=== PATIENT | female | born 1990 | race Caucasian/White ===

== ENCOUNTER 2022-07-24 06:59 | Emergency (ER) | payer OTHER, SELFPAY ==
[2022-07-24] VITALS (9 sets, daily range): BP systolic 115–150; BP diastolic 63–98; PULSE 77–99; RESP 16–18; TEMP 36.9; O2SAT 96–100; BMI 22.6
--- NOTE | 2022-07-24 09:25 | DI.CT.S_ITS ---
PROCEDURE: CT KIDNEY URETER BLADDER (KUB) INDICATIONS: right flank pain, stone vs pyelo TECHNIQUE: Axial sections were acquired from the lung bases to the pubic symphysis. Coronal and sagittal reformats were performed. For radiation dose reduction, the following was used: automated exposure control, adjustment of mA and/or kV according to patient size. COMPARISON: None. FINDINGS: Image quality: Excellent. Lung bases: Unremarkable. Heart: No significant findings. URINARY: Right Kidney: Mild hydronephrosis. Right Ureter: 2 millimeter stone within the right ureteral vesicular junction, resulting in hydroureter. Left Kidney: Punctate nonobstructing stone in the inferior calyx. Left Ureter: No hydroureter. Bladder: Normal wall thickness. No stones. ABDOMEN: Liver: Unremarkable. Gallbladder: Unremarkable. Biliary ducts: Unremarkable. Pancreas: Unremarkable. Spleen: Unremarkable. Adrenal Glands: Unremarkable. Stomach and Bowel: Stomach, small bowel loops, and colon are unremarkable. Peritoneum: No abnormal intraperitoneal fluid. No free air. Ventral Wall: No hernia. Abdominal Nodes: No enlarged retroperitoneal or mesenteric lymph nodes. Vessels: Aorta and inferior vena cava are normal in size. PELVIS: Pelvic Organs: Unremarkable. Pelvic Nodes: Unremarkable. Miscellaneous: No inguinal hernias are seen. Bones: Unremarkable. IMPRESSION: 2 millimeter obstructing stone within the right UVJ, resulting in moderate hydronephrosis. Dictated by: Ras Bocanegra M.D. on 07/24/2022 at 9:50 Approved by: Ras Bocanegra M.D. on 07/24/2022 at 9:52
--- NOTE | 2022-07-24 09:25 | ED.FEMALEGU ---
HPI - Female Genitourinary General Chief complaint: Urogenital-Female Stated complaint: possble kidney stone Time Seen by Provider: 07/24/22 09:08 Source: patient, RN notes reviewed and old records reviewed Mode of arrival: Ambulatory Limitations: no limitations History of Present Illness HPI Narrative: This is a 31-year-old female on oral contraceptives with no other major medical issues. Patient states she woke up with right flank pain in the middle of the night which has been constant with no waxing or waning and quite intense. She denies fevers or chills, denies nausea or vomiting. She states no radiation to the front door elsewhere. No recent trauma or injuries. She denies diarrhea or constipation, no black or bloody stools. She is had frequency, sense of urgency and incomplete emptying as well as few episodes of dysuria. Patient denies any hematuria. She denies any vaginal bleeding or discharge. She states she had a similar episode for 2 or 3 hours about a week. Patient states no other similar episodes. She is on control, no other daily medications. No other reported medical issues. No prior surgeries. No known drug allergies. No tobacco, occasional alcohol, no recreational drugs. Related Data Previous Rx's Medication Instructions Recorded ciprofloxacin HCl 500 mg tablet 500 mg PO BID #14 tabs 07/24/22 oxycodone 5 mg tablet 5 mg PO Q6H PRN pain #14 tabs 07/24/22 tamsulosin 0.4 mg capsule 0.4 mg PO DAILY #30 caps 07/24/22 Review of Systems Review of Systems ROS Unobtainable: All systems reviewed & are unremarkable except as noted in HPI and below Exam Narrative Exam Narrative: GENERAL: Alert and oriented x three, well-nourished female in mild distress. HEENT: Head normocephalic, atraumatic, EOMI, pupils reactive, face symmetric, moist mucous membranes NECK: Supple, full range of motion CARDIOVASCULAR: Regular rate and rhythm without murmurs, rubs or gallops. RESPIRATORY: Breath sounds equal bilaterally, no wheezes rales or rhonchi. ABDOMEN: Soft, nontender. Nondistended. Normoactive bowel sounds all 4 quadrants. No guarding or rebound, rigidity, no mass : No CVA tenderness EXTREMITIES: Normal range of motion, no clubbing or edema. Neurovascularly intact NEUROLOGICAL: Cranial nerves II through XII grossly intact. Moving all extremities SKIN: Warm, dry, no petechiae, no rashes or lesions. Initial Vital Signs Initial Vital Signs: Vital Signs Temperature 98.4 F 07/24/22 07:16 Pulse Rate 97 H 07/24/22 07:16 Respiratory Rate 16 07/24/22 07:16 Blood Pressure 150/94 H 07/24/22 07:16 Pulse Oximetry 100 07/24/22 07:16 Oxygen Delivery Method Room Air 07/24/22 07:16 Course Orders Ordered: ED Orders 07/24/22 10:06 CBC Auto Diff [Complete Blood Count AUTO DIFF] Stat CMP [Comprehensive Metabolic Panel] Stat Lipase Stat Discontinued Medications Ketorolac Tromethamine (Ketorolac 30 Mg/Ml Vial) 15 mg IV NOW ONE Stop: 07/24/22 09:26 Last Admin: 07/24/22 10:04 Dose: 15 mg Documented By: INÉS Ondansetron HCl (Ondansetron 4 Mg/2 Ml Inj) 4 mg IV NOW ONE Stop: 07/24/22 10:01 Last Admin: 07/24/22 10:05 Dose: 4 mg Documented By: INÉS Tamsulosin HCl (Tamsulosin 0.4 Mg Capsule) 0.4 mg PO NOW ONE Stop: 07/24/22 11:31 Last Admin: 07/24/22 11:34 Dose: 0.4 mg Documented By: INÉS Vital Signs Vital signs: Vital Signs - 8 hr 07/24/22 11:38 Pulse Rate 77 Respiratory Rate 18 Blood Pressure 120/68 Pulse Oximetry 99 Oxygen Delivery Method Room Air MDM - Female Genitourinary Lab Data 07/24/22 10:06 07/24/22 10:06 Labs: Lab Results 07/24/22 07/24/22 07/24/22 Range/Units 07:18 10:06 10:06 WBC 12.6 H (4.5-11.0) X10^3/uL RBC 4.64 (4.0-5.2) X10^6/uL Hgb 14.0 (12.0-16.0) g/dL Hct 40.1 (36-46) % MCV 86.4 (80-100) fL MCH 30.1 (26-34) PG MCHC 34.9 (30-36) % RDW 13.3 (11.6-14.8) % Plt Count 315 (150-400) X10^3/uL Neut % (Auto) 82.2 H (50-75) % Lymph % (Auto) 12.3 L (25-40) % [place] % (Auto) 4.9 (3-14) % Eos % (Auto) 0.0 L (2-4) % Baso % (Auto) 0.6 (0-2) % Neut # (Auto) 22151 H (5142-7592) /uL Lymph # (Auto) 1600 (2748-0774) /uL [place] # (Auto) 600 (0-900) /uL Eos # (Auto) 0 (0-450) /uL Baso # (Auto) 100 (0-100) /uL Sodium 133 L (137-145) mmol/L Potassium 3.6 (3.4-5.1) mmol/L Chloride 101 (98-107) mmol/L Carbon Dioxide 19 L (22-32) mmol/L BUN 14 (7-17) mg/dL Creatinine 1.35 H (0.52-1.04) mg/dL Estimated GFR 54 L (>60) mL/min BUN/Creatinine Ratio 10.4 (6-22) Glucose 123 H (70-100) mg/dL Calcium 9.0 (8.4-10.2) mg/dL Total Bilirubin 1.0 (0.2-1.3) mg/dL AST 29 (14-36) IU/L ALT 26 (<35) IU/L Alkaline Phosphatase 43 (38-126) U/L Total Protein 7.4 (6.3-8.2) g/dL Albumin 4.5 (3.5-5.0) g/dL Globulin 2.9 (1.7-4.1) g/dL Albumin/Globulin Ratio 1.6 (1.0-2.8) Lipase 153 (23-300) U/L Urine RBC 0-1/hpf (0-5/HPF) Urine WBC 0-1/hpf (0-5/HPF) Ur Squamous Epith Cells 10-30 /hpf H (0-5/HPF) Amorphous Sediment 2+ Urine Bacteria Moderate (10-30) H (None) Urine Mucus 2+ H (Negative) Ur Culture Indicated? Specimen cultured Point of Care Testing Test Results Negative Urine Dip Bedside Urine Glucose Negative Bedside Urine Bilirubin - Negative Bedside Urine Ketone ++ 40 Urine Specific [place] 1.025 Bedside Urine Occult Blood - Negative Bedside Urine pH 6.0 Bedside Urine Protein + 30 Bedside Urine Urobilinogen - Negative Bedside Urine Nitrite - Negative Bedside Urine Leukocytes - Negative Esterase Imaging Data CT scan - abdomen/pelvis: Radiologist's Impression: Close Abdomen/Pelvis CT (Signed) Ras Bocanegra - 07/24/22 Launch?[address] [address] [address] Scan Report Signed Patient: Yenny Nunn MR#: [id number] : 1990 Acct:[id number] Age/Sex: 31 / F Date of Service: 07/24/22 Loc: ED Accession Number: [id number] ?? Procedure: CT kidney ureter bladder (KUB) Ordering Provider: Rosanna Wray D.O. PROCEDURE:? CT KIDNEY URETER BLADDER (KUB) ? INDICATIONS:? right flank pain, stone vs pyelo ? TECHNIQUE:? Axial sections were acquired from the lung bases to the pubic symphysis.? Coronal and sagittal reformats were performed.? For radiation dose reduction, the following was used: ?automated exposure control, adjustment of mA and/or kV according to patient size.? ? COMPARISON:? None. ? FINDINGS:? Image quality:? Excellent.? ? Lung bases:? Unremarkable.? ? Heart:? No significant findings. ? URINARY: Right Kidney: ? Mild hydronephrosis. Right Ureter:? 2 millimeter stone within the right ureteral vesicular junction, resulting in hydroureter. ? Left Kidney:? Punctate nonobstructing stone in the inferior calyx.? Left Ureter:? No hydroureter.? ? Bladder:? Normal wall thickness. No stones. ? ? ? ABDOMEN: Liver:? Unremarkable.? ? Gallbladder:? Unremarkable.? ? Biliary ducts:? Unremarkable.? ? Pancreas:? Unremarkable.? ? Spleen:? Unremarkable.? ? Adrenal Glands:? Unremarkable.? ? ? Stomach and Bowel:? Stomach, small bowel loops, and colon are unremarkable.? Peritoneum:? No abnormal intraperitoneal fluid.? No free air.? ? Ventral Wall: ? No hernia.? Abdominal Nodes:? No enlarged retroperitoneal or mesenteric lymph nodes.? Vessels:? Aorta and inferior vena cava are normal in size.? ? PELVIS: Pelvic Organs:? Unremarkable.? ? Pelvic Nodes: Unremarkable. Miscellaneous: No inguinal hernias are seen. ? ? ? Bones:? Unremarkable. ? IMPRESSION:? ? 2 millimeter obstructing stone within the right UVJ, resulting in moderate hydronephrosis. ? ? Dictated by: Ras Bocanegra M.D. on 07/24/2022 at 9:50 ? ? Approved by: Ras Bocanegra M.D. on 07/24/2022 at 9:52?? MDM Narrative Medical decision making narrative: This is a 31-year-old female who presents with complaint of fairly acute onset of right flank pain not really gradual but had 1 episode a week ago for 2 or 3 hours but is also having some dysuria, urgency and frequency. Patient's point of care urine did not show clear signs of infection, micro shows 10-30 squamous, moderate bacteria and was cultured. Discussed with patient she does not have reproducible pain on examination suspect kidney versus pyelonephritis. Patient had CBC, CMP, lipase and KUB CT, CT shows a 2 mm stone in the right UVJ. Patient's creatinine is 1.35 no priors for comparison, BUN 14 sodium is 133 CO2 is 19 with a glucose of 123, patient's LFTs are negative. Patient has a white count of 12, slightly leftward shift. Of care urine was negative except for ketones, patient has 10-30 squamous epithelials, moderate bacteria switched was cultured but has 0-1 RBCs and 0-1 wbc's making this possible contaminant. Patient received Toradol for pain, Flomax. Discussed with patient would cover with an antibiotic out of abundance of caution, patient has not been having persistent vomiting she is able to tolerate oral medications so would give Flomax, pain management, oral antibiotic, referral to Urology with strict return precautions if she is developed fevers or having worsening symptoms as she does have a potential bump in her creatinine. We do not have any priors for comparison but in a 31-year-old female seems less likely to be her baseline. Imaging shows mild hydro with some hydroureter, punctate nonobstructing stone in the [place] calyx at the left, otherwise no acute changes. Discussed with patient findings from today, recommendations and need for follow-up. Also discussed with Dr. Ponce from Urology. They are happy to follow with the patient. Recommends 30 days of Flomax, agrees with antibiotics although likely contaminated urine. Pain management and strict return precautions. Discharge Plan Departure Patient Disposition: Home Clinical Impression: Kidney stone on right side Instructions: DI for Kidney Stones Activity Restrictions/Additional Instructions: Please follow-up for recheck, referral was given for Urology. Referral is included below. Please call to set up an appointment. There is a kidney stone on your right side causing your pain, your renal function is slightly elevated today I do not have priors for comparison so I would ask that you have her labs rechecked in the next several days. There is a possible urinary infection associated, please take antibiotics until gone. I did speak with the urologist, they asked for you to strain her urine over the next several days to try to catch the stone to be brought in for evaluation of type of stone. Take Flomax once daily until gone. Take antibiotics until completed. You can take Tylenol up to a 1000 mg every 6 hours and/or ibuprofen 600 mg every 6 hours as needed. You can take oxycodone 1-to 2 tablets every 6 hours as needed for pain. This medication can make you sleepy do not drive, perform hazardous activities or make any major decisions while taking it. This medication will make you constipated please take a stool softener once to twice daily until stools are soft and regular. Prescription sent to [facility] in [place]. Please return for fevers, worsening or intractable pain, vomiting, difficulty with urination or decreased urine output, lightheadedness or passing out or other new or concerning symptoms. Prescriptions: New tamsulosin 0.4 mg capsule 0.4 mg PO DAILY Qty: 30 0RF ciprofloxacin HCl 500 mg tablet 500 mg PO BID Qty: 14 0RF oxycodone 5 mg tablet 5 mg PO Q6H PRN (Reason: pain) Qty: 14 0RF Referrals: Meaghan Ponce MD [Physician] - Stand Alone Forms: Patient Portal/API
[2022-07-24 09:38] LABS: Amorphous Sediment Urine 2+; Bacteria Urine Moderate (10-30); Culture Indicated Urine Specimen Cultured; Mucus Urine 2+ (Negative); RBC Urine 0-1/HPF (0-5/HPF); Squamous Epithelial Cell Urine 10-30 /HPF (0-5/HPF); WBC Urine 0-1/HPF (0-5/HPF)
[2022-07-24] MEDS: KETOROLAC 30 MG/ML VIAL 15 MG IV (10:04)
[2022-07-24] MEDS: ONDANSETRON 4 MG/2 ML INJ IV (10:05)
[2022-07-24 10:26] LABS: Add Manual Diff / Slide Review NO; Basophils Absolute Auto 100 /uL (0-100); Basophils Percent Auto 0.6 % (0-2); Eosinophils Absolute Auto 0 /uL (0-450); Hematocrit 40.1 % (36-46); Lymphocytes Absolute Auto 1600 /uL (1100-4500); Lymphocytes Percent Auto 12.3 % (25-40); Mean Corpuscular HGB Conc 34.9 % (30-36); Mean Corpuscular Hemoglobin 30.1 PG (26-34); Mean Corpuscular Volume 86.4 fL (80-100); Monocytes Absolute Auto 600 /uL (0-900); Monocytes Percent Auto 4.9 % (3-14); Neutrophils Absolute Auto 10400 /uL (1500-7000); Neutrophils Percent Auto 82.2 % (50-75); Platelet Count 315 X10^3/uL (150-400); Red Blood Cell Count 4.64 X10^6/uL (4.0-5.2); Red Cell Distribution Width 13.3 % (11.6-14.8); White Blood Cell Count 12.6 X10^3/uL (4.5-11.0)
[2022-07-24 10:27] LABS: Alanine Aminotransferase 26 IU/L (<35); Albumin 4.5 g/dL (3.5-5.0); Albumin Globulin Ratio 1.6 (1.0-2.8); Alkaline Phosphatase 43 U/L (38-126); Aspartate Aminotransferase 29 IU/L (14-36); BUN Creatinine Ratio 10.4 (6-22); Blood Urea Nitrogen 14 mg/dL (7-17); Carbon Dioxide 19 mmol/L (22-32); Chloride 101 mmol/L (98-107); Estimated Glomerular Filt Rate 54 mL/min (>60); Globulin 2.9 g/dL (1.7-4.1); Glucose 123 mg/dL (70-100); HEMOLYSIS < 15 (0-50); Lipase 153 U/L (23-300); Potassium 3.6 mmol/L (3.4-5.1); Sodium 133 mmol/L (137-145); Total Protein 7.4 g/dL (6.3-8.2)
[2022-07-24] MEDS: TAMSULOSIN 0.4 MG CAPSULE PO (11:34)
== END 2022-07-24 11:41 | disposition home or self-care (01) ==
PROVIDERS: Emergency Provider Emergency Medicine
DX: N20.0 Calculus of kidney (principal); R30.0 Dysuria
CPT/HCPCS: 36415; 74176; 80053; 81003; 81015; 81025; 83690; 85025; 87086; 96374; 96375; 99284; J1885; J2405

== ENCOUNTER → 2024-05-29 16:21 | Outpatient (CLI) | payer OTHER, SELFPAY | PROVIDERS: PCP Family Medicine; Visit Provider Registered Nurse | DX: Z20.818 Contact with and (suspected) exposure to other bacterial communicable diseases (principal) | CPT/HCPCS: 87070 ==